=== PATIENT | male | born 1990 | race Caucasian/White ===

== ENCOUNTER 2023-12-14 07:46 | Outpatient (CLI) | payer OTHER, SELFPAY ==
--- NOTE | 2023-12-14 08:20 | XRR_ITS ---
PROCEDURE INFORMATION: Exam: XR Abdomen Exam date and time: 12/14/2023 7:38 AM Age: 33 years old Clinical indication: Condition or disease; Kidney or ureter condition; Calculus (stone) in kidney; Prior surgery; Surgery date: 6+ months; Surgery type: Kidney stone removal; Additional info: N20.0 - calculus of kidney TECHNIQUE: Imaging protocol: Radiologic exam of the abdomen. Views: Frontal supine view of the abdomen. 1 View. COMPARISON: No relevant prior studies available. FINDINGS: Gastrointestinal tract: Moderate colonic stool burden. Organs: 5 mm calcified entity is appreciated over the right renal silhouette, however also shadows the right. Bones/joints: Unremarkable. XR/XR [id number] IMPRESSION: 1. Possible 5.5 mm renal calculus versus calcified stool. 2. Moderate colonic stool burden.
== END 2023-12-14 07:47 | disposition home or self-care (01) ==
PROVIDERS: Visit Provider Podiatrist Foot & Ankle Surgery
DX: N20.0 Calculus of kidney (principal)
CPT/HCPCS: 74018